=== PATIENT | female | born 2005 ===

== ENCOUNTER 2023-09-01 21:12 | Emergency (ER) | payer MEDICAID, OTHER ==
[~2023-09-01] VITALS: Ht 162.6 cm; Wt 65.0 kg
[2023-09-02] MEDS ORDERED: MORPHINE SULFATE 4 MG/ML SYR/VIAL IM ONE (02:30)
[2023-09-02 02:50] VITALS: BP 99/56
[2023-09-02] MEDS: ONDANSETRON HCL 4 MG/2 ML VIAL IM ONE ×2 (03:05→03:14)
[2023-09-02] MEDS ORDERED: IBUPROFEN 600 MG TAB PO ONE (03:15)
[2023-09-02 03:21] VITALS: PULSE 97; RESP 20; O2SAT 99
== END 2023-09-02 04:37 | disposition left against medical advice (07) ==
LOC: EDBD 21:12 → ER 21:12
DX: M54.2 Cervicalgia (principal); R07.89 Other chest pain; M25.571 Pain in right ankle and joints of right foot; Z53.21 Procedure and treatment not carried out due to patient leaving prior to being seen by health care provider; V59.9XXA Occupant (driver) (passenger) of pick-up truck or van injured in unspecified traffic accident, initial encounter; Y93.I9 Activity, other involving external motion; Y92.89 Other specified places as the place of occurrence of the external cause; Y99.8 Other external cause status
CPT/HCPCS: 70450; 71250; 72125; 73610; 74176; J2405